=== PATIENT | male | born 1990 | race American Indian/Alaskan Native ===

== ENCOUNTER 2018-08-05 09:22 | Emergency (ER) | payer OTHER ==
[2018-08-05 09:28] VITALS: BP 149/95
[2018-08-05] MEDS ORDERED: PERCOCET 5/325 PO ONE (10:32)
[2018-08-05] MEDS ORDERED: ZOFRAN ODT PO ONE (10:32)
[2018-08-05] MEDS ORDERED: IBUPROFEN PO ONE (10:32)
--- NOTE | 2018-08-05 10:39 | Emergency Department Report ---
Upper Extremity - HPI Chief Complaint: Extremity Injury, Upper Stated Complaint: NO FEELING IN RT HAND Time Seen by Provider: 08/05/18 10:21 Upper Extremity: Right Shoulder, Right Wrist, Right Hand Occurred When: 1 Day Mechanism: Other (punched a wall) Severity: moderate Symptoms: Yes Pain with Movement, Yes Limited Range of Movement, No Deformity, No Numbness, No Weakness, No Swelling, No Bruising/Ecchymosis, No Laceration or Abrasion Other History: Jose is a 28 yo male who injured his right wrist and hand after punching a wall yesterday. He was angry at the mother of his child. In anger, he punched a wall at [employer]. Severe pain at the latera portion of hand. When he squeezes a fist, severe pain develops in wrist. ED Review of Systems ROS: Stated complaint: NO FEELING IN RT HAND Other details as noted in HPI Constitutional: denies: fever, malaise Musculoskeletal: denies: joint swelling, arthralgia Skin: denies: rash, lesions, change in color Neurological: denies: numbness, paresthesias ED Past Medical Hx - Past Medical History Previous Medical History?: No - Surgical History Past Surgical History?: No - Social History Smoking Status: Never Smoker Substance Use Type: Marijuana - Medications Home Medications: Home Medications Medication Instructions Recorded Confirmed Last Taken Type Acetaminophen/Codeine [Tylenol 1 tab PO Q6H PRN #12 tab 03/02/18 Unknown Rx /Codeine # 3 tab] Sulfamethoxazole/Trimethoprim 1 each PO BID #14 tablet 03/02/18 Unknown Rx [Bactrim DS TAB] HYDROcodone/APAP 5-325 [[place] 1 each PO Q6HR PRN #10 tablet 08/05/18 Unknown Rx 5/325] Upper Extremity Exam - Exam General: Vital signs noted. No distress. Alert and acting appropriately. Head and Torso: No HEENT Abnormality Shoulder Exam: No Shoulder Tenderness, No Clavicle Tenderness, No Normal Range of Motion in Shoulder Wrist: Yes Wrist Tenderness, Yes Snuffbox Tenderness, Yes Pain with Axial Thumb Compression, No Normal ROM in Wrist (limited ROM), No Wrist Deformity Hand: Yes Hand Tenderness, Yes Digit Tenderness, No Hand Deformity, No Normal ROM in Digit(s), No Digit(s) Deformity, No Tendon Dysfunction CMS Exam: Yes Normal Distal Pulses, Yes Normal Capillary Refill, Yes Normal Distal Sensation, No Broken Skin ED Course Vital Signs 08/05/18 09:27 Temperature 98.0 F Pulse Rate 60 Respiratory 16 Rate Blood Pressure 149/95 O2 Sat by Pulse 100 Oximetry ED Medical Decision Making - Radiology Data Radiology results: report reviewed According to radiology report, radiographs of the right hand and wrist are normal without acute process. - Medical Decision Making Right ulnar gutter splint was applied to the affected extremity under my supervision. After application the extremity was neurovascularly intact with acceptable alignment. Due to severe pain and point tenderness of the right wrist, I strongly recommended keeping splint in place until evaluated by orthopedics specialist. Prescribed [place]. Critical care attestation.: If time is entered above; I have spent that time in minutes in the direct care of this critically ill patient, excluding procedure time. ED Disposition Clinical Impression: Right wrist sprain, Contusion of right hand Disposition: DC- TO HOME OR SELFCARE Is pt being admited?: No Does the pt Need Aspirin: No Condition: Stable Instructions: Wrist Injury (ED), Hand Sprain (ED), Splint Care (ED) Additional Instructions: Please keep splint in place until evaluated by hr specialist Prescriptions: HYDROcodone/APAP 5-325 [[place] 5/325] 1 each PO Q6HR PRN #10 tablet PRN Reason: Pain Referrals: SHAWN ORDOÑEZ MD [Staff Physician] - 3-5 Days Forms: Work/School Release Form(ED)
--- NOTE | 2018-08-05 10:57 | XRay Report ---
PROCEDURE: XR HAND 3+V RT TECHNIQUE: 3 views of the right hand HISTORY: pain after hitting wall COMPARISONS: None. FINDINGS: There is normal alignment without acute fracture or dislocation. The joint spaces are preserved. The overlying soft tissues are intact. IMPRESSION: No acute bony abnormality of the right hand. This document is electronically signed by Sonya Kearns MD., August 05 2018 10:54:54 AM ET
--- NOTE | 2018-08-05 11:37 | XRay Report ---
PROCEDURE: XR WRIST 3+V RT TECHNIQUE: 3 views of the right wrist HISTORY: right wrist pain COMPARISONS: None. FINDINGS: There is normal alignment without acute fracture or dislocation. The joint spaces are preserved. The overlying soft tissues are intact. IMPRESSION: No acute bony abnormality of the right wrist. This document is electronically signed by Sonya Kearns MD., August 05 2018 11:36:03 AM ET
== END 2018-08-05 12:23 | disposition home or self-care (01) ==
LOC: ED 09:22
DX: S63.501A Unspecified sprain of right wrist, initial encounter (principal); S60.221A Contusion of right hand, initial encounter; W22.01XA Walked into wall, initial encounter; Y93.89 Activity, other specified; Y92.89 Other specified places as the place of occurrence of the external cause; Y99.8 Other external cause status
CPT/HCPCS: Q0162

== ENCOUNTER 2018-08-07 08:29 | Emergency (ER) | payer OTHER ==
--- NOTE | 2018-08-07 09:59 | Emergency Department Report ---
ED General Adult HPI - General Chief complaint: Extremity Injury, Upper Stated complaint: R ARM PAIN/TIGHTNESS Time Seen by Provider: 08/07/18 09:58 Source: patient Mode of arrival: Ambulatory Limitations: No Limitations - History of Present Illness Initial comments: 28 y.o male who reports splint on Lt. arm is getting tighter, and increased pain. seen here x2 days ago for Lt. wrist pain. no finger discoloration, no increased swelling. Severity scale (0 -10): 7 - Related Data Previous Rx's Medication Instructions Recorded Last Taken Type Acetaminophen/Codeine [Tylenol 1 tab PO Q6H PRN #12 tab 03/02/18 Unknown Rx /Codeine # 3 tab] Sulfamethoxazole/Trimethoprim 1 each PO BID #14 tablet 03/02/18 Unknown Rx [Bactrim DS TAB] HYDROcodone/APAP 5-325 [[place] 1 each PO Q6HR PRN #10 tablet 08/05/18 Unknown Rx 5/325] Ibuprofen [Motrin] 800 mg PO Q8HR PRN #15 tablet 08/07/18 Unknown Rx Allergies Allergy/AdvReac Type Severity Reaction Status Date / Time No Known Allergies Allergy Verified 08/05/18 09:23 ED Review of Systems ROS: Stated complaint: R ARM PAIN/TIGHTNESS Other details as noted in HPI Comment: All other systems reviewed and negative ENT: denies: ear pain, throat pain Cardiovascular: denies: chest pain, dyspnea on exertion Gastrointestinal: denies: abdominal pain, nausea, vomiting Musculoskeletal: other (left wrist pain) ED Past Medical Hx - Social History Smoking Status: Never Smoker Substance Use Type: Marijuana - Medications Home Medications: Home Medications Medication Instructions Recorded Confirmed Last Taken Type Acetaminophen/Codeine [Tylenol 1 tab PO Q6H PRN #12 tab 03/02/18 Unknown Rx /Codeine # 3 tab] Sulfamethoxazole/Trimethoprim 1 each PO BID #14 tablet 03/02/18 Unknown Rx [Bactrim DS TAB] HYDROcodone/APAP 5-325 [[place] 1 each PO Q6HR PRN #10 tablet 08/05/18 Unknown Rx 5/325] Ibuprofen [Motrin] 800 mg PO Q8HR PRN #15 tablet 08/07/18 Unknown Rx ED Physical Exam - General Limitations: No Limitations General appearance: alert - Head Head exam: Present: atraumatic - Eye Eye exam: Present: normal appearance - ENT ENT exam: Present: normal exam, normal orophraynx, mucous membranes moist - Neck Neck exam: Present: normal inspection - Respiratory Respiratory exam: Present: normal lung sounds bilaterally - Cardiovascular Cardiovascular Exam: Present: regular rate, normal rhythm - GI/Abdominal GI/Abdominal exam: Present: soft, normal bowel sounds - Rectal Rectal exam: Present: deferred - Extremities Exam Extremities exam: Present: other (left wrist tenderness. no signs of compartment syndrome.) ED Course Vital Signs 08/07/18 08/07/18 08:37 10:09 Temperature 97.8 F Pulse Rate 75 70 Respiratory 16 20 Rate Blood Pressure 143/100 129/90 [Right] O2 Sat by Pulse 100 99 Oximetry ED Medical Decision Making - Medical Decision Making splint adjusted feels better, d/c home with ortho f/u. - Differential Diagnosis fracture, cellulitis Critical care attestation.: If time is entered above; I have spent that time in minutes in the direct care of this critically ill patient, excluding procedure time. ED Disposition Clinical Impression: Wrist pain, right Disposition: DC-01 TO HOME OR SELFCARE Is pt being admited?: No Does the pt Need Aspirin: No Condition: Stable Instructions: Wrist Injury (ED) Prescriptions: Ibuprofen [Motrin] 800 mg PO Q8HR PRN #15 tablet PRN Reason: Pain , Severe (7-10) Referrals: SAAD WEISS MD [Primary Care Provider] - 3-5 Days
[2018-08-08 18:35] VITALS: BP 129/90
== END 2018-08-07 10:08 | disposition home or self-care (01) ==
LOC: ED 08:29
DX: M25.531 Pain in right wrist (principal); F12.10 Cannabis abuse, uncomplicated
CPT/HCPCS: 99282